=== PATIENT | male | born 1995 | race Caucasian/White ===

== ENCOUNTER 2025-07-18 20:52 | Emergency (ER) | payer MEDICAID ==
[~2025-07-18] VITALS: Ht 185.4 cm; Wt 93.2 kg
[2025-07-18 21:04] VITALS: TEMP 98.2
[2025-07-18] MEDS: LIDOCAINE 1% 10 ML VIAL SQ ONE (21:25)
[2025-07-18 21:33] VITALS: BP 168/106; PULSE 123; RESP 25; O2SAT 100
[2025-07-18 21:35] LABS: PLATELET COUNT (AUTO) 531 K/uL (150-450); RED BLOOD CELL COUNT(AUTO) 4.70 MIL/uL (4.50-5.90); RED CELL DISTRIBUTION WIDTH 13.5 % (11.5-14.5); WHITE BLOOD COUNT (AUTO) 14.9 K/uL (4.5-11.0)
[2025-07-18 21:40] LABS: CALCIUM, TOTAL 9.1 mg/dL (8.8-10.5); CREATININE 1.57 mg/dL (0.60-1.30); GLOMERULAR FILTR. RATE CALC 53.0 mL/min (>60); GLUCOSE,RANDOM 109.0 mg/dL (70-110); SODIUM SERUM 137.0 mmol/L (136-145); UREA NITROGEN, BLOOD 10.0 mg/dL (7-18)
[2025-07-18] MEDS: CeFAZolin 1 GM/DEXTROSE 50 ML IV ONE (21:54)
[2025-07-18] MEDS ORDERED: BACITRACIN 0.9 GM PACKET OINTMENT TP ONE (22:02)
[2025-07-18] MEDS: BACITRACIN 0.9 GM PACKET OINTMENT TP ONE (22:06)
[2025-07-18] MEDS: PERTUSS(ACELL),DIPH,TET/PF 0.5 ML SYRINGE [ADULT] IM. ONE (22:29)
[2025-07-18] MEDS ORDERED: CEPH-558 PO (22:43)
[2025-07-18] MEDS ORDERED: TRAM50TA5 PO (22:46)
== END 2025-07-18 22:59 | disposition home or self-care (01) ==
LOC: EMS 20:56
DX: S61.411A Laceration without foreign body of right hand, initial encounter (principal); F17.210 Nicotine dependence, cigarettes, uncomplicated; Z98.890 Other specified postprocedural states; W45.8XXA Other foreign body or object entering through skin, initial encounter; Y93.89 Activity, other specified; Y92.89 Other specified places as the place of occurrence of the external cause; Y99.8 Other external cause status
CPT/HCPCS: 99284; 96365; 80048; 85025; 36415; 73130; 90715; 90471; 12004; J0690; J3490

== ENCOUNTER 2025-07-20 13:43 | Emergency (ER) | payer MEDICAID ==
[~2025-07-20] VITALS: Ht 185.4 cm; Wt 102.3 kg
[~2025-07-20 13:43] MED LIST: CEPH-558 PO; TRAM50TA5 PO
[2025-07-20 13:45] VITALS: TEMP 99
[2025-07-20 13:50] VITALS: BP 152/99; PULSE 97; RESP 18; O2SAT 97
[2025-07-20] MEDS ORDERED: IBUP-1492 PO (14:38)
== END 2025-07-20 14:20 | disposition home or self-care (01) ==
LOC: EMS 13:44
DX: S61.411D Laceration without foreign body of right hand, subsequent encounter (principal); F17.210 Nicotine dependence, cigarettes, uncomplicated; Z98.890 Other specified postprocedural states; Z79.899 Other long term (current) drug therapy; X58.XXXD Exposure to other specified factors, subsequent encounter
CPT/HCPCS: 99282; Z7502